=== PATIENT | female | born 1990 | race African-American/Black ===

== ENCOUNTER 2024-11-01 09:39 | Emergency (ER) | payer OTHER ==
[~2024-11-01] VITALS: Ht 170.2 cm; Wt 63.5 kg
[2024-11-01 10:00] VITALS: TEMP 98
[2024-11-01] MEDS ORDERED: predniSONE 20 MG TABLET ONE (10:16)
[2024-11-01] MEDS: predniSONE 20 MG TABLET PO ONE (10:21)
[2024-11-01] MEDS ORDERED: ALBU6.7H9 INH (10:21)
[2024-11-01] MEDS ORDERED: IPRATROPIUM NEB FS 0.5 MG/2.5 ML AMPUL.NEB ONE (10:29)
[2024-11-01] MEDS ORDERED: ALBUTEROL FS 2.5 MG/3 ML VIAL.NEB ONE (10:29)
[2024-11-01] MEDS: ALBUTEROL FS 2.5 MG/3 ML VIAL.NEB CONTNEB ONE (10:39)
[2024-11-01] MEDS: IPRATROPIUM NEB FS 0.5 MG/2.5 ML AMPUL.NEB NEB ONE (10:39)
[2024-11-01 10:40] VITALS: O2SAT 94
[2024-11-01 11:05] VITALS: O2SAT 97
[2024-11-01 12:29] VITALS: BP 99/59; O2SAT 100
== END 2024-11-01 12:29 | disposition home or self-care (01) ==
LOC: ER 09:44
DX: J06.9 Acute upper respiratory infection, unspecified (principal); B97.89 Other viral agents as the cause of diseases classified elsewhere; F12.90 Cannabis use, unspecified, uncomplicated; Z20.822 Contact with and (suspected) exposure to COVID-19
CPT/HCPCS: 99284; 71045; 87426; 87804 ×2; 94640; J7512